=== PATIENT | female | born 1965 | race Caucasian/White ===

== ENCOUNTER 2022-02-14 17:12 | Emergency (ER) | payer OTHER ==
[2022-02-14 17:34] VITALS: BP 125/62; PULSE 74; RESP 18; TEMP 98.2; BMI 20.7
[2022-02-14] MEDS ORDERED: DIPHTH,PERTUSS(ACELL),TET 0.5 ML DISP.SYRIN IM ONE ×2 (18:13→18:22)
[2022-02-14] MEDS ORDERED: CEFUROXIME AXETIL 500 MG TABLET PO ONE (18:16)
[2022-02-14] MEDS ORDERED: metroNIDAZOLE 250 MG TABLET PO ONE (18:16)
[2022-02-14] MEDS ORDERED: metroNIDAZOLE 250 MG TABLET ONE (18:22)
[2022-02-14] MEDS ORDERED: CEFUROXIME AXETIL 500 MG TABLET ONE (18:22)
[2022-02-14] MEDS ORDERED: NAPROXEN 375 MG TABLET PO ONE (18:28)
== END 2022-02-14 18:44 | disposition home or self-care (01) ==
LOC: FER 17:12
PROC: 0HQFXZZ Repair Right Hand Skin, External Approach (ICD-10-PCS; principal; 2022-02-14)
PROC: 3E0234Z Introduction of Serum, Toxoid and Vaccine into Muscle, Percutaneous Approach (ICD-10-PCS; 2022-02-14)
DX: S61.451A Open bite of right hand, initial encounter (principal); W54.0XXA Bitten by dog, initial encounter
CPT/HCPCS: 90471; 90715; 99284-25